=== PATIENT | female | born 1980 | race Caucasian/White ===

== ENCOUNTER 2022-05-28 14:24 | Emergency (ER) | payer SELFPAY ==
[2022-05-28 14:42] VITALS: BP 143/85; PULSE 68; RESP 24; O2SAT 97
--- NOTE | 2022-05-28 14:46 | ED.GENADUL_ITS ---
Discharge Plan Disposition Patient Disposition: Other Disposition Not Listed Other Facility: still a Pt, sign out Discharge Details Chief Complaint: Abd Prob Clinical Impression: Acute right flank pain Primary Care Provider: None,None ED Provider: Parvez Smith Medical Decision Making 41-year-old female presents with right back, flank pain that began this morning, resolved and then returned suddenly and sharply. Associate with nausea and vomiting. Patient states that she does not have any medical problems but does not regularly seek medical attention. Clinically she appears uncomfortable. Plan is to obtain IV access, obtain routine screening laboratory values, provide IV fluid, Zofran and Toradol as renal stone is high on my differential No evidence of leukocytosis urinalysis reveals 20-50 red cells, 3-5 white cells. 5-10 casts. Awaiting CMP and CT imaging. This documentation was generated using [employer] dictation system, please disregard any oddities of phrase or misspellings. Lab Data Lab results reviewed: Yes I reviewed the patient's lab results. Labs: 05/28/22 14:50 Urine - Reflex from Ua Urine Culture - Pending Laboratory Tests Range/Units 05/28/22 05/28/22 14:50 15:05 WBC (4.4-10.8) 10^3/uL 9.98 RBC (3.93-5.22) 10^6/uL 4.95 Hgb (11.2-15.7) g/dL 14.2 Hct (36.0-46.0) % 40.9 MCV (80-95) fL 83 MCH (27.0-33.0) pg 28.7 MCHC (32.0-36.0) % 34.7 RDW (11.7-14.6) % 12.2 Plt Count (130-400) 10^3/uL 492 H MPV (8.0-11.0) fL 8.7 Immature Gran % 0.3 Neutrophils % 88.7 Lymphocytes % 6.8 Monocytes % 3.6 Eosinophils % 0.2 Basophils % 0.4 Nucleated RBC % (0.0-0.3) % 0.0 Absolute Neutrophils (1.2-6.7) 10^3/uL 8.85 H Absolute Lymphocytes (1.2-3.4) 10^3/uL 0.68 L Absolute Monocytes (0.1-0.8) 10^3/uL 0.36 Absolute Eosinophils (0.0-0.7) 10^3/uL 0.02 Absolute Basophils (0.0-0.2) 10^3/uL 0.04 Urine Color (Yellow) Yellow Urine Clarity (Clear) Sl Cloudy Urine pH (5-8) 6.5 Ur Specific [place] (1.005-1.025) >= 1.030 H Urine Protein (Negative) mg/dL >=300 H Urine Ketones (Negative) mg/dL 40 H Urine Blood (Negative) Large H Urine Nitrite (Negative) Negative Urine Bilirubin (Negative) Negative Urine Urobilinogen (Up TO 0.2) EU/dL 0.2 Ur Leukocyte Esterase (Negative) Small H Urine RBC (0-2) HPF 20-50 H Urine WBC (0-5) HPF 3-5 Ur Epithelial Cells (Negative) HPF Few Urine Crystals (Negative) HPF Negative Urine Bacteria (Negative) HPF Rare Urine Casts (Negative) LPF 5-10 Hyaline Urine Mucus (Negative) Trace Ur Culture Indicated? Yes Urine Glucose (Negative) mg/dL Negative Sign Out Yes HPI General Mode of arrival: ambulatory . Date/Time Provider Initiated Documentation: 05/28/22 14:46 . Limitations to Documentation: no limitations . Information obtained by: patient . History of Present Illness 41 year old F presents to the emergency department with the chief complaint of R flank pain, described as severe, with intensity rated at 8. Quality is described as aching and sharp, and is localized to the abdomen and right. Patient flank. Patient started experiencing this hour(s) (8) and it has been intermittent. No relieving factors improve symptom(s), No exacerbating factors reported . Patient notes nausea/vomiting. Patient did receive the following treatments prior to arrival, none General Stated Complaint: Abd Prob MICHELLE: 3 Review of Systems Constitutional Constitutional: Denies fever(s) and Denies weakness Cardiovascular Cardiovascular: Denies chest pain and Denies dyspnea Respiratory Respiratory: Denies cough and Denies dyspnea Gastrointestinal Gastrointestinal: Reports abdominal pain, Denies melena, Denies hematochezia, Denies constipation, Denies diarrhea, Reports loose stools, Reports nausea and Reports vomiting Genitourinary Genitourinary: Denies abnormal vaginal bleeding, Denies hematuria, Denies dysuria and Denies vaginal discharge Musculoskeletal Musculoskeletal: Reports back pain Integumentary/Breasts Skin/Breast: Denies rash Neurologic Neurologic: Denies weakness PFSH All Active Problems (Updated 05/28/22 @ 15:30 by MARGOT Keane) Acute right flank pain (Acute) Social History Smoking risk assessment performed?: No Exam Const General: cooperative, healthy appearing and other (Appears slightly uncomfortable) Orientation: alert and awake [facility] Head: normal to inspection, normocephalic and atraumatic Face and sinus: normal facial exam Mouth: moist mucous membranes Eyes General: appearance normal, both eyes and all related structures Conjunctivae: conjunctivae normal Neck Neck: normal visual inspection, full ROM, no meningeal signs, trachea midline and supple Resp Effort & Inspection: normal respiratory effort and able to speak in complete sentences Auscultation: clear to auscultation bilaterally Cardio Rate: regular rate Rhythm: regular rhythm GI Inspection: normal to inspection Palpation: soft, not firm, no guarding, no pulsatile masses and tender in the RLQ and other (R flank) Auscultation: normal bowel sounds Back/Spine/Pelvis Back: no CVA tenderness and back tenderness (Diffuse mild right lumbar) Skin General skin exam: no rashes or lesions noted Neuro General: patient alert, patient awake, moves all extremities and no focal motor deficits Cognition: normal cognition Speech: speech normal Gait: normal gait Sensory Exam: no sensory deficits noted Psych Appearance: grossly normal Mental Status: mental status grossly normal Course Vital Signs Vital signs: Vital Signs Pulse 68 05/28/22 14:42 Respiratory Rate 24 05/28/22 14:42 Blood Pressure 143/85 H 05/28/22 14:42 Pulse Oximetry 97 05/28/22 14:42 Pulse 68 05/28/22 14:42 Respiratory Rate 24 05/28/22 14:42 Blood Pressure 143/85 H 05/28/22 14:42 Blood Pressure Position Sitting 05/28/22 14:42 Pulse Oximetry 97 05/28/22 14:42 Oxygen Delivery Method Room Air 05/28/22 14:42 Oxygen Flow Rate 0 05/28/22 14:42 Pain Level 10 05/28/22 14:42
[2022-05-28 14:54] LABS: Bilirubin Negative (Negative); Blood Large (Negative); Clarity Sl Cloudy (Clear); Glucose Negative (Negative); Ketones 40 mg/dL (Negative); Leukocyte Esterase Small (Negative); Nitrite Negative (Negative); Specific Gravity >= 1.030 (1.005-1.025); Urobilinogen 0.2 EU/dL (Up TO 0.2); pH 6.5 (5-8)
[2022-05-28 15:09] LABS: Bacteria Rare HPF (Negative); C & S Indicated? Yes; Casts 5-10 Hyaline LPF (Negative); Crystals Negative HPF (Negative); Epithelial Cells Few HPF (Negative); Mucus Trace (Negative); RBC 20-50 HPF (0-2)
[2022-05-28 15:13] LABS: Abs Immature Grans 0.03 10^3/uL (0.0-0.06); Absolute Basophil Count 0.04 10^3/uL (0.0-0.2); Absolute Eosinophil Count 0.02 10^3/uL (0.0-0.7); Absolute Lymphocyte Count 0.68 10^3/uL (1.2-3.4); Absolute Monocyte Count 0.36 10^3/uL (0.1-0.8); Absolute Neutrophil Count 8.85 10^3/uL (1.2-6.7); Basophils % 0.4; Eosinophils % 0.2; HCT 40.9 % (36.0-46.0); HGB 14.2 g/dL (11.2-15.7); Immature Grans % 0.3; Lymphocytes % 6.8; MCH 28.7 pg (27.0-33.0); MCHC 34.7 % (32.0-36.0); MCV 83 fL (80-95); MPV 8.7 fL (8.0-11.0); Monocytes % 3.6; Neutrophils % 88.7; Platelet Count 492 10^3/uL (130-400); RBC 4.95 10^6/uL (3.93-5.22); RDW 12.2 % (11.7-14.6); RDW-SD 36.9 fL; WBC 9.98 10^3/uL (4.4-10.8)
[2022-05-28 15:33] LABS: ALT 19 U/L (14-59); AST 20 U/L (15-37); Albumin 4.3 g/dL (3.4-5.0); Alkaline Phosphatase 66 U/L (46-116); Anion Gap 13.9 mmol/L (3-11); BUN 10 mg/dL (7-18); Bilirubin, Total 0.6 mg/dL (0.2-1.0); CO2 24.1 mmol/L (21.0-32.0); CREATININE 0.9 mg/dL (0.55-1.02); Calcium 9.1 mg/dL (8.5-10.1); Chloride 99 mmol/L (98-107); Estimated GFR 81.35 (mL/min/1.73m2); Glucose 129 mg/dL (74-106); Lipase 106 U/L (73-393); Potassium 3.5 mmol/L (3.5-5.1); Sodium 137 mmol/L (136-145); Total Protein 8.1 g/dL (6.4-8.2)
[2022-05-28] MEDS: Ketorolac 30 MG/ML VIAL IVP (15:35)
[2022-05-28] MEDS: Normal Saline 1,000 ML 1000 ML IV (15:35)
[2022-05-28] MEDS: Ondansetron 4 MG/2 ML VIAL IVP (15:36)
[2022-05-28 15:57] LABS: Bilirubin Small (Negative); Blood Large (Negative); Clarity Clear (Clear); Glucose Negative (Negative); Ketones >=160 mg/dL (Negative); Leukocyte Esterase Trace (Negative); Nitrite Negative (Negative); Specific Gravity >= 1.030 (1.005-1.025)
[2022-05-28 16:09] LABS: Bacteria Rare HPF (Negative); C & S Indicated? No/Sq. Contamination; Casts 3-5 Hyaline LPF (Negative); Crystals Negative HPF (Negative); Epithelial Cells Moderate HPF (Negative); Mucus Negative (Negative); RBC 20-50 HPF (0-2)
--- NOTE | 2022-05-28 16:45 | DI.CT_ITS ---
Exam(s) CT RENAL COLIC WO EXAM: CT RENAL COLIC WO INDICATION: right sided abd/flank pain. COMPARISON: No exams were available for comparison TECHNIQUE: CT examination was performed without contrast administration. FINDINGS: Images obtained through the lung bases show multiple noncalcified pulmonary nodules, the largest in the left lower lobe measuring about 6 millimeters mean diameter period please correlate regarding any history of neoplastic disease, additional evaluation with chest CT recommended. Visualized portions of the liver and spleen appear intact. Visualized portions of the pancreas are unremarkable. Gallbladder and bile ducts are CT normal. Abdominal aorta is of normal diameter. No significant abdominal wall hernia. No significant abdominal or pelvic adenopathy. Adrenals appear normal bilaterally. The kidneys are normal in size and shape. There is moderate right hydronephrosis. There is a proxim al right ureteral 5 millimeter in diameter obstructing stone. No left renal or ureteral calcificatio n seen. No additional right ureteral calcification period. Urinary bladder is nearly empty.. IMPRESSION: Obstructing 5 millimeter in diameter proximal right ureteral stone Multiple noncalcified basilar pulmonary nodules, correlation with chest CT recommended. Unexpected findings RADIATION DOSE DELIVERED: DLP Total DLP DATA REPOSITORY: All CT scans at this facility are submitted to the National Radiology Data Registry (NRDR) Dose Index Registry (DIR) with the [employer] [place] [employer] (ACR). RADIATION OPTIMIZATION: All CT scans at this facility use at least one of these dose optimization te chniques: automated exposure control; mA and/or kV adjustment per patient size (includes targeted exa ms where dose is matched to clinical indication); or iterative reconstruction.
[2022-05-28] MEDS: HYDROmorphone 2 MG/ML SYR 0.5 MG IVP (17:19)
--- NOTE | 2022-05-28 17:26 | DI.VRAD_ITS ---
Addendum created by Dwight Florez MD on 05/28/2022 5:26:10 PM EST: For patients at low risk (minimal or absent history of smoking and of other known risk factors), no routine follow-up is indicated. For patients at high risk (history of smoking or of other known risk factors), consider optional CT Chest at 12 months. (Reference: Kim) References: Kim Rubio, et al. Guidelines for Management of Incidental Pulmonary Nodules Detected on CT Images: From the Fleischner Society 2017. Radiology. 2017;284(1):228-243. Initial report created on 05/28/2022 5:25:34 PM EST: PROCEDURE INFORMATION: Exam: CT Abdomen And Pelvis Without Contrast Exam date and time: 05/28/2022 5:06 PM Age: 41 years old Clinical indication: Other: Right sided abd flank pain TECHNIQUE: Imaging protocol: Computed tomography of the abdomen and pelvis without contrast. COMPARISON: No relevant prior studies available. FINDINGS: Lungs: Left lower lobe 5 mm nodule. Liver: Normal. No mass. Gallbladder and bile ducts: Normal. No calcified stones. No ductal dilation. Pancreas: Normal. No ductal dilation. Spleen: Normal. No splenomegaly. Adrenal glands: Normal. No mass. Kidneys and ureters: Right hydronephrosis and proximal right hydroureter. 5 mm stone present in the proximal right ureter. Stomach and bowel: Unremarkable. No obstruction. No mucosal thickening. Appendix: No evidence of appendicitis. Intraperitoneal space: Unremarkable. No free air. No significant fluid collection. Vasculature: Unremarkable. No abdominal aortic aneurysm. Lymph nodes: Unremarkable. No enlarged lymph nodes. Urinary bladder: Unremarkable as visualized. Reproductive: Midline uterus. No adnexal mass. Bones/joints: Unremarkable. No acute fracture. Soft tissues: Fat containing umbilical hernia. IMPRESSION: Right hydronephrosis and proximal right hydroureter. 5 mm stone present in the proximal right ureter. Dictated and Authenticated by: Dwight Florez MD. Ordering:RISHABH Purvis MD
--- NOTE | 2022-05-28 17:40 | W.EDPROG ---
Date of service: 05/28/22 Time of Service: 15:35 Medical Decision Making 1535-please see previous documentation from initial provider for initial presentation, exam, and plan of care. Patient signed out to me pending for review of labs and CT imaging Labs reviewed and are overall unremarkable with nondiagnostic CBC, slightly elevated anion gap at 13.9 and elevated glucose otherwise normal CMP, urinalysis does show high specific gravity, urine ketones, and large amount of blood. There was trace leukocyte esterase but patient had high casts and rare bacteria with labs stating contaminated specimen. Patient denies any infectious type urinary symptoms. We will see what CT imaging shows. Pending CT imaging patient did state a return of pain so we will give additional pain medication Review of CT imaging shows a 5 mm stone in the right ureter otherwise unremarkable CT imaging. I do not feel that patient has an infected stone given such acute onset of symptoms. Did discuss with patient monitoring of symptoms and immediately return for any infectious symptoms otherwise we will start patient on Flomax and give symptomatic control meds pending follow-up with urology. After discussion of diagnosis and plan of care patient has no further needs, questions, or concerns and states clear understanding to return to the emergency department for any worsening symptoms. This documentation was generated using Graph[employer] dictation system, please disregard any oddities of phrase or misspellings. Sign Out Yes Sign Out Sign Out Data: Sign Out Comment: Right sided flank pain this morning, given IV fluid, Zofran, Toradol. Awaiting CT abdomen and pelvis without contrast, high suspicion for a right sided renal stone Last updated by Parvez Smith PA at 05/28/22 15:31 Discharge Plan Disposition Patient Disposition: Home Condition: Stable Discharge Details Clinical Impression: Calculus in urethra Primary Care Provider: None,None ED Provider: Yaniv Gallego Home Meds and New Rx's Prescriptions: New tamsulosin [Flomax] 0.4 mg capsule 0.4 mg PO QHS 14 Days Qty: 14 0RF ibuprofen [IBU] 600 mg tablet 600 mg PO QID PRN (Reason: pain) Qty: 20 0RF Discharge Instructions Instructions: Kidney Stones (ED) Additional Instructions: If you develop any fever chills, persistent and uncontrollable vomiting, severe worsening of symptoms please return immediately to the emergency department for reassessment. Otherwise stay well-hydrated and take medication as prescribed. You have been provided a limited amount of narcotics and please take as prescribed and use sparingly. You have been placed on a follow-up list for follow-up with urology and please contact your office to arrange your follow-up appointment. Referrals: [facility] [Provider Group] - 2 weeks (Please call the office tomorrow afternoon for arrangement of follow-up appointment.) Discharge Data Discharge Date/Time-TO BE ENTERED AT DEPARTURE: 05/28/22 18:16
[2022-05-28] MEDS: Tamsulosin 0.4 MG CAPCR PO (17:55)
[2022-05-28] MEDS: Ondansetron O.D.T. 4 MG TABEF, 3 TABS/BTL PO (17:56)
[2022-05-28] MEDS: Ibuprofen 600 MG TAB, 6 TABS/BTL PO (17:57)
[2022-05-28 18:15] VITALS: BP 135/76; PULSE 78; RESP 18; TEMP 37; O2SAT 96
--- NOTE | 2022-05-28 18:28 | NUR.NOTE ---
Nursing Note: Referral faxed to [facility] Urology for right ureteral stone, to be seen at their discretion.
== END 2022-05-28 18:16 | disposition home or self-care (01) ==
PROVIDERS: Physician Assistant; Emergency Provider Nurse Practitioner Family
DX: N20.1 Calculus of ureter (principal); R11.2 Nausea with vomiting, unspecified
CPT/HCPCS: 36415; 80053; 81025; 83690; 96361; 96374; 96375; 99284; 74176; 81003; 81015; 85025; 87086; J1170; J1885; J2405

== ENCOUNTER 2024-04-21 17:39 | Outpatient (REF) | payer BC, SELFPAY ==
--- NOTE | 2024-04-21 14:00 | PAPFT_PTH ---
PATIENT: Sabra Camara LOC: [facility] U#:[id number] AGE/SX: 43/F ROOM: RE04/21/[address]: Jamaal Figueredo DNP : 1980 BED: DIS: 04/21/2024 SPEC #: [id number] RECD: 04/22/24 13:12 STATUS: [place] REQ #: [id number] SHIRA: 04/21/24 14:[address]: Jamaal Mata DEPT: PENDING SALE TO [facility] Cytology RECD BY: Raquel Baker Tissues: 1 - CX/ENDOCX FOR PAP SMEARS Procedures: PAP THIN PREP/[facility] Screening HPV DNA PROBE Comments: [id number] (HPV 16 & 18/45)
== END 2024-04-21 17:40 | disposition home or self-care (01) ==
LOC: LBN 17:39
PROVIDERS: PCP Nurse Practitioner Family; Visit Provider Nurse Practitioner Family
DX: Z12.4 Encounter for screening for malignant neoplasm of cervix (principal)
CPT/HCPCS: 88142; 87624

== ENCOUNTER 2024-04-27 05:09 | Outpatient (CLI) | payer BC, SELFPAY ==
[2024-04-27 19:24] LABS: ALT 20 U/L (14-59); AST 15 U/L (15-37); Albumin 4.2 g/dL (3.4-5.0); Alkaline Phosphatase 65 U/L (46-116); Anion Gap 14.1 mmol/L (3-11); BUN 8 mg/dL (7-18); Bilirubin, Total 0.45 mg/dL (0.2-1.0); CO2 24.9 mmol/L (21.0-32.0); CREATININE 0.9 mg/dL (0.55-1.02); Calcium 9.6 mg/dL (8.5-10.1); Calculated LDL 181 mg/dL (<100); Chloride 104 mmol/L (98-107); Cholesterol 274 mg/dL (<200); Estimated GFR 80.34 (mL/min/1.73m2); Glucose 119 mg/dL (74-106); HDL Cholesterol 55 mg/dL (40-60); Potassium 3.9 mmol/L (3.5-5.1); Sodium 143 mmol/L (136-145); Total Protein 7.5 g/dL (6.4-8.2); Triglyceride 192 mg/dL (<150)
[2024-04-27 23:36] LABS: HIV-1/2 Ag & Ab Screen Negative (Negative)
[2024-04-27 23:42] LABS: Hepatitis C Ab w Rflx HCV PCR Negative (Negative)
[2024-04-28 11:45] LABS: IgA 142 mg/dL (85-499); Interpretation (See Note); Tissue Transglutaminase IgA <4.0 CU (<20.0)
== END 2024-04-27 05:10 | disposition home or self-care (01) ==
LOC: LBO 05:09
PROVIDERS: PCP Nurse Practitioner Family
DX: Z11.59 Encounter for screening for other viral diseases (principal); R19.7 Diarrhea, unspecified; Z11.4 Encounter for screening for human immunodeficiency virus [HIV]; Z13.220 Encounter for screening for lipoid disorders
CPT/HCPCS: 36415; 80053; 80061; 82784; 83516; 86803; 87389

== ENCOUNTER 2024-04-29 00:33 | Outpatient (CLI) | payer BC, SELFPAY ==
--- OUTSIDE RECORDS SUMMARY | 2024-04-29 00:41 | XMS_ITS | Encounter Summary ---
Author Organization [facility] Address [address] [place] [address] Care Team Providers Care Manager Fire Name Role Phone Unavailable Primary Care Provider Unavailabl e Encounter Details Date Type Department Care Team (Late st Contact Info) Description 04/27/2024 Lab Requisition [facility] Pathology & Laboratory Medicine - [facility] [address] [place] [address] Outr Resulting Lab, Provider Social History Tobacco Use Types Packs/Day Years Used Date Smoking Tobacco: Never Assessed Sex and Gender Information Value Date Recorded Sex Assigned at Not on file Gender Identity Not on file Sexual Orientation Not on file documented as of this encounter Plan of Treatment Not on file documented as of this encounter Procedures Procedure Name Priority Date/Time Associated Diagnosis Comments HIV 1/2 ANTIGEN AND ANTIBODY, 4TH GENERATION Routine 04/27/2024 15:12 EDT documented in this encounter Results * HIV 1/2 ANTIGEN AND ANTIBODY, 4TH GENERATION (04/27/2024 15:12 EDT) HIV 1 and 2 Antibody/p24 Antigen, 4th Generation Negative Negative 04/27/2024 23:31 EDT [facility] Comment:If acute HIV-1 infec tion is suspected in a high risk patient, submit plasma specimen for HIV-1 RNA quantitation test. Blood VENOUS BLOOD / Unknown 04/27/2024 15:12 EDT 04/27/2024 21:52 EDT Narrative [facility] - 04/27/2024 23:31 EDT Fourth Generation assay performed on the Siemens Centaur XPT. Provider Outr Resulting Lab IMMUNOLOGY A ND SEROLOGY ORDERABLES [facility] [address] [place] [address] documented in this encounter Visit Diagnoses Not on filedocumented in this encounter
--- OUTSIDE RECORDS SUMMARY | 2024-04-29 00:41 | XMS_ITS | Clinical Summary ---
Author Organization [facility] Address [address] [place] [address] Care Team Providers Care Sales Representative Education Courses Name Role Phone Unavailable Primary Care Provider Unavailabl e Encounters Date Type Department Care Team Description 04/27/2024 Lab Requisition [facility] Pathology & Laboratory [address] [address] Outr Resulting Lab, Provider 04/27/2024 Lab Requisition [facility] Pathology Laboratory [address] [address] Outr Resulting Lab, Provider 04/25/2024 Lab Requisition [facility] Pathology Laboratory [address] [address] Jamaal Mata, DNP Encounter for other general examination from Last 3 Months Social History Tobacco Use Types Packs/Day Years Used Date Smoking Tobacco: Never Assessed Sex and Gender Information Value Date Recorded Sex Assigned at Not on file Gender Identity Not on file Sexual Orientation Not on file Plan of Treatment Health Maintenance Due Date Last Done Comments Hepatitis B Vaccine (1 of 3 - 19+ 3-dose series) 12/17 COVID-19 Vaccine ( season) 2024 Hepatitis C Screen Completed 04/27/2024 Procedures Procedure Name Priority Date/Time Associated Diagnosis Comments HIV 1/2 ANTIGEN AND ANTIBODY, 4TH GENERATION Routine 04/27/2024 15:12 EDT HEPATITIS C AB W REFLEX TO HCV RNA BY PCR Routine 04/27/2024 15:12 EDT CELIAC DISEASE PANEL Routine 04/27/2024 15:12 EDT from Last 3 Months Results * CELIAC DISEASE PANEL (04/27/2024 15:12 EDT) Tissue Transglutaminase Antibody, IgA <4.0 <20.0 CU 04/28/2024 11:41 EDT [facility] Comment: A negative result may be due to IgA deficiency and does not rule out celiac disease. Negative: <20.0 CU Weak Positive: 20.0-30.0 CU Positive: >30.0 CU Results were obtained with the KeVitaA Flash h-tTG IgA chemiluminescent immunoassay. Values obtained with different manufacturers' assay methods may not be used interchangeably. IgA 142 85 - 499 mg/dL 04/28/2024 11:41 EDT [facility] Celiac Disease Interpretation Negative Serology. Celiac disease unlikely. Approximately 10% of patients with celiac disease are seronegative. Patients who are already adhering to a gluten-free diet may also be seronegative. If celiac disease is highly clinically suspected, referral to gastroenterology for additional evaluation is recommended. 04/28/2024 11:41 EDT [facility] Blood VENOUS BLOOD / Unknown 04/27/2024 15:12 EDT 04/27/2024 21:52 EDT Provider Outr Resulting Lab IMMUNOLOGY A ND SEROLOGY ORDERABLES Performing Organization Address City/[facility]/ZIP Co de Phone Number [facility] [address] [place] [id number] * HEPATITIS C AB W REFLEX TO HCV RNA BY PCR (04/27/2024 15:12 EDT) Pathologist [facility] Hep C Antibody Negative Negative 04/27/2024 23:39 EDT [facility] Blood VENOUS BLOOD / Unknown 04/27/2024 15:12 EDT 04/27/2024 21:52 EDT Provider Outr Resulting Lab CHEMISTRY & BLOOD GAS ORDERABLES Performing Organization Address City/[facility]/ZIP Co de Phone Number [facility] [address] [place] [address] * HIV 1/2 ANTIGEN AND ANTIBODY, 4TH GENERATION (04/27/2024 15:12 EDT) Pathologist [facility] HIV 1 and 2 Antibody/p24 Antigen, 4th Generation Negative Negative 04/27/2024 23:31 EDT [facility] Comment:If acute HIV-1 infec tion is suspected in a high risk patient, submit plasma specimen for HIV-1 RNA quantitation test. Blood VENOUS BLOOD / Unknown 04/27/2024 15:12 EDT 04/27/2024 21:52 EDT Narrative [facility] - 04/27/2024 23:31 EDT Fourth Generation assay performed on the Siemens Prieto Batteryaur XPT. Provider Outr Resulting Lab IMMUNOLOGY A ND SEROLOGY ORDERABLES [facility] [address] [place] [address] from Last 3 Months
--- OUTSIDE RECORDS SUMMARY | 2024-04-29 00:41 | XMS_ITS | Encounter Summary ---
Author Organization [facility] Address [address] [place] [address] Care Team Providers Care Cooking Instructor Name Role Phone Unavailable Primary Care Provider Unavailabl e Encounter Details Date Type Department Care Team (Late st Contact Info) Description 04/27/2024 Lab Requisition [facility] Pathology & Laboratory Medicine - [facility] [address] [place], [place] [address] Outr Resulting Lab, Provider Social History Tobacco [...] Procedure Name Priority Date/Time Associated Diagnosis Comments CELIAC DISEASE PANEL Routine 04/27/2024 15:12 EDT HEPATITIS C AB W REFLEX TO HCV RNA BY PCR Routine 04/27/2024 15:12 EDT documented in this encounter Results * HEPATITIS C AB W REFLEX TO HCV RNA BY PCR (04/27/2024 15:12 EDT) Hep C Antibody Negative Negative 04/27/2024 23:39 EDT [facility] Blood VENOUS BLOOD / Unknown 04/27/2024 15:12 EDT 04/27/2024 21:52 EDT Provider Outr Resulting Lab CHEMISTRY & BLOOD GAS ORDERABLES [facility] [address] [place], [place] [address] * CELIAC DISEASE PANEL (04/27/2024 15:12 EDT) Tissue Transglutaminase Antibody, IgA <4.0 <20.0 CU 04/28/2024 11:41 EDT [facility] Comment: A negative result may be due to IgA deficiency and does not rule out celiac disease. Negative: <20.0 CU Weak Positive: 20.0-30.0 CU Positive: >30.0 CU Results were obtained with the [employer] QUANTA Flash h-tTG IgA chemiluminescent immunoassay. Values obtained with different manufacturers' assay methods may not be used interchangeably. IgA 142 85 - 499 mg/dL 04/28/2024 11:41 EDT [facility] Celiac Disease Interpretation Negative Serology. Celiac disease unlikely. Approximately 10% of patients with celiac disease are seronegative. Patients who are already adhering to a gluten-free diet may also be seronegative. If celiac disease is highly clinically suspected, referral to gastroenterology for additional evaluation is recommended. 04/28/2024 11:41 EDT [facility] Blood VENOUS BLOOD / Unknown 04/27/2024 15:12 EDT 04/27/2024 21:52 EDT Provider Outr Resulting Lab IMMUNOLOGY A ND SEROLOGY ORDERABLES [facility] [address] [place] [address] documented in this encounter Visit Diagnoses Not on filedocumented in this encounter
--- OUTSIDE RECORDS SUMMARY | 2024-04-29 00:41 | XMS_ITS | Encounter Summary ---
Author Organization [facility] Address [address] [place] [address] Care Team Providers Care Waistline Joiner Lockstitch Name Role Phone Unavailable Primary Care Provider Unavailabl e Encounter Details Date Type Department Care Team (Late st Contact Info) Description 04/25/2024 Lab Requisition [facility] Pathology & Laboratory Medicine - [facility] [address] [place] [address] Jamaal Mata, [address] [place] [id number] Encounter for other general examination Social History Tobacco Use Types Packs/Day Years Used Date Smoking Tobacco: Never Assessed Sex and Gender Information Value Date Recorded Sex Assigned at Not on file Gender Identity Not on file Sexual Orientation Not on file documented as of this encounter Plan of Treatment Pending Results Name Type Priority Associated Diagnoses Date /Time PAP TEST Pathology Today Encounter for other general examination 04/21/2024 14:00 EDT documented as of this encounter Visit Diagnoses Diagnosis Encounter for other general examination documented in this encounter
--- OUTSIDE RECORDS SUMMARY | 2024-04-29 00:41 | XMS_ITS | Referral Summary ---
Author Organization [facility] Address [address] [place] [address] Care Team Providers Care Motor Winder Name Role Phone Unavailable Primary Care Provider Unavailabl e Encounters Date Type Department Care Team Description 04/27/2024 Lab Requisition [facility] Pathology & Laboratory [address] [address] Outr Resulting Lab, Provider 04/27/2024 Lab Requisition [facility] Pathology Laboratory [address] [id number] Outr Resulting Lab, Provider 04/25/2024 Lab Requisition [facility] Pathology Laboratory [address] [address] Jamaal Mata, DNP Encounter for other general examination from Last 3 Months Social History Tobacco Use Types Packs/Day Years Used Date Smoking Tobacco: Never Assessed Sex and Gender Information Value Date Recorded Sex Assigned at Not on file Gender Identity Not on file Sexual Orientation Not on file Plan of Treatment Not on file Procedures Procedure Name Priority Date/Time Associated Diagnosis Comments HIV 1/2 ANTIGEN AND ANTIBODY, 4TH GENERATION Routine 04/27/2024 15:12 EDT HEPATITIS C AB W REFLEX TO HCV RNA BY PCR Routine 04/27/2024 15:12 EDT CELIAC DISEASE PANEL Routine 04/27/2024 15:12 EDT from Last 3 Months Results * CELIAC DISEASE PANEL (04/27/2024 15:12 EDT) Tissue Transglutaminase Antibody, IgA <4.0 <20.0 CU 04/28/2024 11:41 EDT [facility] Comment: A negative result may be due to IgA deficiency and does not rule out celiac disease. Negative: <20.0 CU Weak Positive: 20.0-30.0 CU Positive: >30.0 CU Results were obtained with the M-FactorA Flash h-tTG IgA chemiluminescent immunoassay. Values obtained with different manufacturers' assay methods may not be used interchangeably. IgA 142 85 - 499 mg/dL 04/28/2024 11:41 EDT [facility] Celiac Disease Interpretation Negative Serology. Celiac disease unlikely. Approximately 10% of patients with celiac disease are seronegative. Patients who are already adhering to a gluten-free diet may also be seronegative. If celiac disease is highly clinically suspected, referral to gastroenterology for additional evaluation is recommended. 04/28/2024 11:41 EDT [facility] Blood VENOUS BLOOD / Unknown 04/27/2024 15:12 EDT 04/27/2024 21:52 EDT Provider Outr Resulting Lab IMMUNOLOGY A ND SEROLOGY ORDERABLES Performing Organization Address [facility] Co de Phone Number [facility] [address] [place] [address] * HEPATITIS C AB W REFLEX TO HCV RNA BY PCR (04/27/2024 15:12 EDT) Hep C Antibody Negative Negative 04/27/2024 23:39 EDT [facility] Blood VENOUS BLOOD / Unknown 04/27/2024 15:12 EDT 04/27/2024 21:52 EDT Provider Outr Resulting Lab CHEMISTRY & BLOOD GAS ORDERABLES Performing Organization Address City/[facility]/ZIP Co de Phone Number [facility] [address] [place], [place] [id number] * HIV 1/2 ANTIGEN AND ANTIBODY, 4TH GENERATION (04/27/2024 15:12 EDT) HIV 1 and 2 Antibody/p24 Antigen, 4th Generation Negative Negative 04/27/2024 23:31 EDT [facility] Comment:If acute HIV-1 infec tion is suspected in a high risk patient, submit plasma specimen for HIV-1 RNA quantitation test. Blood VENOUS BLOOD / Unknown 04/27/2024 15:12 EDT 04/27/2024 21:52 EDT Narrative [facility] - 04/27/2024 23:31 EDT Fourth Generation assay performed on the Vappsaur XPT. Provider Outr Resulting Lab IMMUNOLOGY A ND SEROLOGY ORDERABLES [facility] [address] [place] [address] from Last 3 Months
--- NOTE | 2024-04-29 07:30 | DI.MAMMO_ITS ---
Exam(s) MAMMO SCREENING EXAM: MAMMO SCREENING CLINICAL HISTORY: screening,z12.39 TECHNIQUE: Bilateral full field digital CC and MLO mammographic images were obtained with 3D tomosyn thesis and utilizing computer aided detection (CAD). COMPARISON: This is a baseline examination. FINDINGS: Masses/Architectural Distortion: No suspicious masses or areas of architectural distortion are presen t. Microcalcifications: No suspicious pleomorphic-type are seen. Skin Thickening/Nipple Retraction: None. IMPRESSION: 1. No evidence for malignancy is seen at this time. 2. Unless there is more urgent need, screening mammography is recommended, as per [employer] guidelines. BI-RADS Category 1 - Negative Breast Density - Category B - Scattered areas of fibroglandular density Breast density category C or D implies that the patient has dense breast tissue. Dense breast tissue is very common and is not abnormal but dense breast tissue can make it harder to find cancer on a ma mmogram. Also, dense breast tissue may increase their breast cancer risk. This information about the result of the mammogram report was provided to the patient to raise their awareness. Use this report when you speak with the patient about their risks for breast cancer, which includes their family hist ory. At that time, you may recommend for more screening tests (Ultrasound or MRI) as they might be us eful based on their risk. A negative radiographic report should not delay biopsy if a dominant or clinically suspicious mass is present. Up to ten percent of cancers are not identified on mammography. A negative report may reinforce clinical impression. Adenosis and dense breasts may obscure an underlying neoplasm. False positive reports average 6 to 10%. Patient will receive a letter notifying them of these results.
--- NOTE | 2024-04-29 14:32 | DI.RAD_ITS ---
Exam(s) XR KNEE RT 3V AP,LAT,KANDI EXAM: XR KNEE RT 3V AP,LAT,KANDI CLINICAL HISTORY: rt knee pain since 2017,injury,s89.91za. TECHNIQUE: 2D digital imaging was performed. COMPARISON: No exams were available for comparison FINDINGS: 3 views No evidence of fracture or obvious joint effusion. No degenerative changes evident. No joint space narrowing. No osteochondral defects. IMPRESSION: No significant radiographic findings in the right knee. DATA REPOSITORY: RADIATION DOSE DELIVERED:
== END 2024-04-29 00:53 ==
LOC: DI 00:33
PROVIDERS: PCP Nurse Practitioner Family; Visit Provider Nurse Practitioner Family
DX: Z12.31 Encounter for screening mammogram for malignant neoplasm of breast (principal); S89.91XA Unspecified injury of right lower leg, initial encounter; X58.XXXA Exposure to other specified factors, initial encounter
CPT/HCPCS: 73562; 77063; 77067

== ENCOUNTER 2024-07-18 02:15 | Outpatient (CLI) | payer MEDICAID, SELFPAY ==
--- NOTE | 2024-07-18 07:30 | DI.MRI_ITS ---
Exam(s) MR LOWER JOINT RT WO EXAM: MR LOWER JOINT RT WO CLINICAL HISTORY: PAIN,INTERNAL DERANGEMENT RT KNEE, M23.91. TECHNIQUE: Multiplanar multisequence MRI was performed. COMPARISON: CR XR KNEE RT 3V AP,LAT,KANDI from 04/29/2024 FINDINGS: BONES: There is no fracture or contusion pattern. JOINTS: Articular cartilage is unremarkable. No effusion is present. TENDONS: Extensor mechanism: Unremarkable. Medial retinaculum: Unremarkable. Lateral retinaculum: Unremarkable. Popliteus: Unremarkable. MUSCLES: Unremarkable. MENISCI: The medial meniscus is unremarkable. There is hyperintense signal seen in the anterior horn and body of the lateral meniscus. There also is an associated parameniscal cyst. SOFT TISSUES: Unremarkable. LIGAMENTS: Anterior Cruciate: Unremarkable. Posterior Cruciate: Unremarkable. Medial Collateral:Unremarkable. Lateral Collateral: Unremarkable. OTHER: IMPRESSION: There is a tear of the anterior horn and body of the lateral meniscus with an associated parameniscal cyst. DATA REPOSITORY:
== END 2024-07-18 02:35 ==
LOC: DI 02:15
PROVIDERS: PCP Nurse Practitioner Family; Visit Provider Student in an Organized Health Care Education/Training Program
DX: M23.011 Cystic meniscus, anterior horn of medial meniscus, right knee (principal)
CPT/HCPCS: 73721

== ENCOUNTER 2024-08-01 09:04 | Day surgery (SDC) | payer MEDICAID, SELFPAY ==
--- NOTE | 2024-07-31 06:53 | W.PM.DSUDISC ---
Date of service: 08/01/24 Discharge Plan Disposition Patient Disposition: Home Condition: Good Discharge Details Reason For Visit: screening colonoscopy Attending Provider: Bryan Escobar Primary Care Provider: Jamaal Mata Home Meds and New Rx's Prescriptions: Discontinued bisacodyl [Dulcolax (bisacodyl)] 5 mg tablet,delayed release (DR/EC) 5 mg PO ONCE Qty: 4 0RF Rx Instructions: Take per colonoscopy instructions provided by ordering providers office polyethylene glycol 3350 17 gram/dose powder 17 g PO ONCE Qty: 238 0RF Rx Instructions: Take per colonoscopy instructions provided by ordering providers office No Action No Known Home Meds Discharge Instructions Additional Instructions: Vinod Miroslava, was very nice meeting you today, and I hope you are comfortable during the colonoscopy. Everything went very smoothly. Your prep was excellent, and I could see everything fine. I did not see any signs of active inflammation irritation or anything that would cause significant diarrhea. If you need anything, or have any questions at all, please do not hesitate to ask. Otherwise, I would recommend another colonoscopy in 10 years as part of routine health maintenance. 1. If tolerated, consume a soft, low fiber diet for 1-2 days. 2[address] Do not drive, drink alcohol, operate machinery, make critical decisions, or do activities that require coordination or balance for 24 hours. 3. Because air was put into your colon during the procedure, expelling air from your rectum (passing gas or farting) is normal. 4. You may not have a bowel movement for 1-3 days because of the colonoscopy prep. This is normal. 5. Go directly to the emergency room if you notice any of the following: Develop chills (warm to touch), or if you have a thermometer and your temperature is above 101 Difficulty breathing or difficultly swallowing Persistent vomiting Severe abdominal pain, other than gas cramps Severe chest pain Black, tarry stools Any bleeding ? exceeding one tablespoon 6. Call your physician if the site where your intravenous was started becomes red, swollen, painful, and warm to touch. 7. Your physician has reviewed your pre-procedure medications. Please continue to take those medications as previously ordered. You will be given specific information/education regarding any changes to your medications before leaving. Activity:: Activity as Tolerated Diet:: As Tolerated Discharge Orders Discharge Orders: Discharge Order (Routine); Ordered 07/31/24 Ordered By: Bryan Escobar DS: Diagnosis Discharge Diagnosis (1) Encounter for screening colonoscopy: Status: Acute Asessment and Plan: Negative screening colonoscopy; 10-year follow-up
--- NOTE | 2024-07-31 06:55 | W.COLOREPORT ---
Date of service: 08/01/24 Time of Service: 11:12 Colonoscopy Report Date of procedure: 08/01/24 Pre-op diagnosis general: screening colonoscopy Post-op diagnosis procedure note: other (Normal screening colonoscopy) Procedure: colonoscopy Surgeon: Bryan Escobar Anesthesia Type: General:No Airway Estimated blood loss (mL): 0 Pathology: none sent Complications: None Disposition: same day Indications: Sabra is a 43 year old woman who needs a screening colonoscopy Prep: Miralax/Dulcolax Procedure Start Time: 10:47 Procedure End Time: 11:04 Retraction Time: 6 Findings: Normal-appearing colonoscopy Procedure Description: After the induction of anesthesia, and with Sabra in left lateral decubitus position, I began by performing an external anorectal exam.? Perineum and skin were normal, as was the anal verge.? There was no evidence of external hemorrhoids.? Next, I performed a digital rectal exam.? I did not appreciate any abnormal findings.? Next, I advanced a colonoscope into the rectal vault.? I performed retroflexion.? This appeared normal.? Using insufflation, I then advanced the colonoscope beyond the rectal folds and into the sigmoid colon before advancing towards the cecum.? The quality of the prep was outstanding.? The scope was noted to be in the cecum by identification of the ileocecal valve and appendiceal orifice.? I then began withdrawing the colonoscope using repeated irrigation as necessary for full evaluation of the colonic mucosa. ?Once the scope was withdrawn to the level of the rectum, great care was taken to examine portions of the rectal folds. I saw no signs of active irritation, inflammation, tumors, polyps, or any other pathology.? Finally, the scope was withdrawn and the patient was brought to the same-day surgery recovery unit as the anesthetic wore off. ?The findings and instructions were shared with the patient prior to discharge. [place] Bowel Prep [place] Bowel Prep Right Colon: 3 Left Colon: 3 Transverse Colon: 3 Total Score: 9
--- NOTE | 2024-07-31 15:41 | W.ANESPRE ---
General Info Date of Service Date Performed: 08/01/24 Height: 5 ft 2 in Weight: 80.286 kg Body Mass Index (BMI): 32.3 Surgical Procedure: Operation Date: 08/01/24 10:35 Proposed Procedure Side Surgeon julio Escobar MD Meds Allergies and Home Medications Allergies Allergy/AdvReac Type Severity Reaction Status Date / Time No Known Allergies Allergy Verified 07/29/24 11:45 Home Medication ?Medication ?Instructions ?Recorded Unknown [No Known Home Meds] 07/31/24 Current Visit Medications: Current Medications Generic Name Dose Route Start Last Admin Trade Name Freq PRN Reason Stop Dose Admin Ringer's Solution 1,000 mls @ 80 mls/hr 08/01/24 06:00 IV 08/01/24 23:59 INFUSION HAWK IV Miscellaneous Supplies 1 each 08/01/24 06:00 Iv Access IV 08/01/24 23:59 DIRECTED HAWK Ondansetron HCl 4 mg 07/31/24 06:57 Ondansetron 4 Mg/2 Ml Vial IVP 08/30/24 06:56 Q4H PRN PRN Nausea / Vomiting Sodium Chloride 0 ml 08/01/24 06:00 Normal Saline Flush 10 Ml Syr IV 08/01/24 23:59 PRN PRN Sodium Chloride 0 ml 08/01/24 06:00 Normal Saline 10 Ml Vial IJ 08/01/24 23:59 DIRECTED PRN Sterile Water 0 ml 08/01/24 06:00 Water,Injection,Sterile 10 Ml Vial IJ 08/01/24 23:59 DIRECTED PRN PFSH Active Problems Active Problems: Problem Status Onset Code Tear of lateral meniscus of right knee Acute S83.281A Encounter for screening colonoscopy Acute Z12.11 Internal derangement of right knee Acute 2017 M23.91 Intermittent diarrhea Acute R19.7 Screening for colorectal cancer Acute Z12.11, Z12.12 Right knee injury Acute S89.91XA Medical History Medical History Calculus of proximal right ureter Tobacco Smoking/Tobacco Use Status: Never Passive smoking exposure: Yes Second hand exposure: No Alcohol Alcohol Intake: never Substance Use Substance use: Never Substance use type: does not use Vital Signs and Lab Results Vital Signs Most Recent Vital Signs in EMR: Temp Pulse Resp BP Pulse Ox 36.6 C 75 16 108/60 98 08/01/24 09:31 08/01/24 09:31 08/01/24 09:31 08/01/24 09:31 08/01/24 09:31 Lab Results Blood Type / Crossmatch: No Data to Display Complete Blood Count: No Data to Display Complete Metabolic Panel: No Data to Display Liver Function Panel: No Data to Display Coagulation Panel: No Data to Display Cardiac Panel: No Data to Display Arterial Blood Gas: No Data to Display Venous Blood Gas: No Data to Display Pancreas Panel: No Data to Display Thyroid Panel: No Data to Display Infectious Disease: No Data to Display Blood Cultures: No Data to Display Toxicology Panel: No Data to Display Panel: No Data to Display Anesthesia Assessment and Plan Anesthesia History Personal History: No History of Anesthesia Complications Family History: No Family History of Anesthesia Complications Exercise Tolerance Exercise Tolerance: Metabolic Equivalents>4 Cardiac & Pulmonary Exam Cardiac Exam: Normal S1/S2 Heart Sounds Pulmonary Exam: Clear Bilateral Breath Sounds Implantable Cardiac Device Does patient have a Pacemaker or an ICD?: No Airway Exam Known Difficult Airway: No Mallampati Class: 3 Mouth Opening: Normal (> 3cm) Thyromental Distance: Greater than 3 cm Neck Range of Motion: Full ROM Neck Circumference: Normal Teeth Condition: Normal Dentition ASA Classification ASA Score: ASA 1 Emergency Case?: No NPO Status NPO Status: NPO Clears >2 hours, Solids >8 hours Status Status: Not Relevant due to Medical History Anesthesia Plan Resuscitation Status: Full Code Anesthesia Technique: General Anesthesia Airway Planned: Natural Airway Monitors Used: Standard Monitors Preoperative Comments:: 43 yo female for colo. Sig PMHX: denies major, no home meds.
[2024-08-01 09:31] VITALS: BP 108/60; PULSE 75; RESP 16; TEMP 36.6; O2SAT 98
[2024-08-01 09:43] VITALS: BMI 32.3
[2024-08-01] MEDS: Lactated Ringers 1,000 ML 80 ML IV (09:53)
[2024-08-01 11:08] VITALS: BP 88/76; PULSE 88; RESP 18; TEMP 36.5; O2SAT 95
[2024-08-01 11:38] VITALS: BP 110/76; PULSE 87; RESP 16; TEMP 36.6; O2SAT 100
--- NOTE | 2024-08-01 11:58 | W.ANESPOSTOP ---
Postoperative Evaluation Date, Time and Location Date Performed: 08/01/24 Time Performed: 11:58 Patient Location: Day Surgery Unit Vital Signs Most Recent Imported Vital Signs: Most Recent Vital Signs Temp Pulse Resp BP Pulse Ox 36.6 C 87 16 110/76 100 08/01/24 11:38 08/01/24 11:38 08/01/24 11:38 08/01/24 11:38 08/01/24 11:38 Pain Score Most Recent Pain Score: Most Recent Pain Score Pain Level 0 08/01/24 11:38 Assessment Mental Status: Awake (Alert & Oriented to Patient Baseline) Airway and Respiratory Function: Patent airway with normal (patient baseline) respiratory exam Cardiovascular Function: Hemodynamically Stable Hydration Status: Adequately Hydrated Nausea & Vomiting: No Nausea or Vomiting Pain: Pt. Denies Any Pain Peripheral Nerve Block: Patient did not receive a nerve block
== END 2024-08-01 11:52 | disposition home or self-care (01) ==
LOC: SUR 09:05
PROVIDERS: PCP Nurse Practitioner Family; Visit Provider Surgery
PROC: 0DJD8ZZ Inspection of Lower Intestinal Tract, Via Natural or Artificial Opening Endoscopic (ICD-10-PCS; CPT 45378; principal; 2024-08-01 10:30)
DX: Z12.11 Encounter for screening for malignant neoplasm of colon (principal)
CPT/HCPCS: 45378; J2704

== ENCOUNTER 2025-07-05 00:39 | Outpatient (CLI) | payer SELFPAY ==
[2025-07-05 12:02] LABS: ALT 14 U/L (10-49); AST 19 U/L (<34); Albumin 4.5 g/dL (3.2-5.0); Alkaline Phosphatase 53 U/L (46-116); Anion Gap 8.9 mmol/L (3-11); BUN 12 mg/dL (9-23); Bilirubin, Total 0.5 mg/dL (0.2-1.2); CO2 25.1 mmol/L (20.0-31.0); Calcium 8.9 mg/dL (8.3-10.6); Chloride 107 mmol/L (98-107); Glucose 92 mg/dL (74-106); Potassium 4.0 mmol/L (3.5-5.1); Sodium 141 mmol/L (136-145); Total Protein 7.2 g/dL (5.7-8.2)
[2025-07-10 14:55] LABS: Apolipoprotein B, Serum 120 mg/dL (48-124); Beta VLDL Cholesterol Not Detected mg/dL (<15); Beta VLDL Triglycerides Not Detected mg/dL (<15); Cholesterol, Total, CDC 257 mg/dL; Chylomicron Cholesterol Not Detected; Chylomicron Triglycerides Not Detected; HDL Cholesterol, CDC 50 mg/dL (>=50); LpX Not detected; Triglycerides, CDC 148 mg/dL; VLDL Triglycerides 82 mg/dL (<120)
== END 2025-07-05 00:40 | disposition home or self-care (01) ==
PROVIDERS: PCP Nurse Practitioner Family; Visit Provider Nurse Practitioner Family
DX: E78.5 Hyperlipidemia, unspecified (principal)
CPT/HCPCS: 36415; 80053; 80061; 82172; 82664